=== PATIENT | female | born 2000 | race Caucasian/White ===

== ENCOUNTER → 2023-09-14 | Outpatient (CLI) | payer OTHER, SELFPAY ==
[2023-09-18 09:09] LABS: Chlamydia By Nucleic Acid AMP Negative (Negative); Gonococcus By Nucleic Acid AMP Negative (Negative)
== END | disposition home or self-care (01) ==
LOC: LABSPEC 16:51
PROVIDERS: PCP Internal Medicine; Referring Provider Advanced Practice Midwife; Visit Provider Advanced Practice Midwife
DX: Z34.90 Encounter for supervision of normal pregnancy, unspecified, unspecified trimester (principal)
CPT/HCPCS: 87086; 87088; 87491; 87591

== ENCOUNTER → 2023-10-10 | Outpatient (CLI) | payer OTHER, SELFPAY ==
[2023-10-10 16:02] LABS: Absolute Lymphocyte Count 2.25 X10^3/uL (0.83-4.51); Absolute Neutrophil Count 10.3 X10^3/uL (2.0-7.7); Basophil# 0.04 X10^3/uL; Basophil% 0.3 % (0-1); Eosinophil# 0.28 X10^3/uL; Eosinophils% 2.1 % (0-5); Hematocrit 39.3 % (37-47); Hemoglobin 13.4 g/dL (12.0-15.0); Lymphocyte # 2.25 X10^3/ul (0.83-4.51); Lymphocyte % 16.6 % (19-41); Mean Corp Hgb Conc 34.1 g/dL (32-36); Mean Corpuscular Hgb 29.9 pg (27.0-32.0); Mean Corpuscular Volume 87.7 fL (81-99); Mean Platelet Vol. 9.3 fl (6.2-12.0); Monocyte# 0.64 X10^3/uL; Monocyte% 4.7 % (0-10); NRBC Flagged by Analyzer 0 % (0-5); Neutrophil # 10.27 X10^3/uL (2.7-7.7); Neutrophil % 75.8 % (47-70); Platelet Count 295 K/mm3 (150-450); Red Blood Count 4.48 M/mm3 (4.2-5.4); White Blood Count 13.6 K/mm3 (4.4-11.0)
[2023-10-10 16:55] LABS: NATERA MAILED SPECIMEN
[2023-10-10 17:07] LABS: HIV - WCH Non-Reactive (Nonreactive); Hepatitis B Surface Antigen Non-Reactive (Nonreactive); Hepatitis C Antibody Non-Reactive (Nonreactive); Rubella IgG Reactive (Nonreactive); Syphilis Antibodies Non-reactive
== END | disposition home or self-care (01) ==
LOC: PAVLAB 15:39
PROVIDERS: PCP Internal Medicine; Referring Provider Advanced Practice Midwife; Visit Provider Advanced Practice Midwife
DX: Z34.00 Encounter for supervision of normal first pregnancy, unspecified trimester (principal)
CPT/HCPCS: 36415; 85025; 86703; 86762; 86780; 86803; 86850; 86900; 86901; 87340

== ENCOUNTER → 2023-10-16 | Outpatient (CLI) | payer OTHER, SELFPAY ==
[2023-10-16 17:30] LABS: NATERA MAILED SPECIMEN
== END | disposition home or self-care (01) ==
LOC: LAB 16:28
PROVIDERS: PCP Internal Medicine; Visit Provider Advanced Practice Midwife
DX: Z34.82 Encounter for supervision of other normal pregnancy, second trimester (principal)

== ENCOUNTER → 2023-11-07 | Outpatient (CLI) | payer OTHER, SELFPAY | END | disposition home or self-care (01) | LOC: LABSPEC 16:50 | PROVIDERS: PCP Internal Medicine; Visit Provider Obstetrics & Gynecology | DX: O23.40 Unspecified infection of urinary tract in pregnancy, unspecified trimester (principal); Z3A.00 Weeks of gestation of pregnancy not specified | CPT/HCPCS: 87086; 87088 ==

== ENCOUNTER → 2024-01-23 | Outpatient (CLI) | payer OTHER, SELFPAY ==
[2024-01-23 09:51] LABS: Absolute Lymphocyte Count 1.75 X10^3/uL (0.83-4.51); Basophil# 0.03 X10^3/uL; Basophil% 0.3 % (0-1); Eosinophil# 0.28 X10^3/uL; Eosinophils% 2.9 % (0-5); Hematocrit 35.5 % (37-47); Hemoglobin 11.9 g/dL (12.0-15.0); Lymphocyte # 1.75 X10^3/ul (0.83-4.51); Lymphocyte % 18.1 % (19-41); Mean Corp Hgb Conc 33.5 g/dL (32-36); Mean Corpuscular Hgb 29.7 pg (27.0-32.0); Mean Corpuscular Volume 88.5 fL (81-99); Mean Platelet Vol. 9.3 fl (6.2-12.0); Monocyte# 0.54 X10^3/uL; Monocyte% 5.6 % (0-10); NRBC Flagged by Analyzer 0 % (0-5); Neutrophil # 7.02 X10^3/uL (2.7-7.7); Neutrophil % 72.5 % (47-70); Platelet Count 262 K/mm3 (150-450); RBC Distribution Width CV 12.2 % (11.6-14.6); RBC Distribution Width SD 39.6 fl (35.1-43.9); Red Blood Count 4.01 M/mm3 (4.2-5.4); White Blood Count 9.7 K/mm3 (4.4-11.0)
[2024-01-23 10:09] LABS: Glucose Challenge Gest 1H 50g 108 mg/dL (70-140)
[2024-01-23 11:17] LABS: HIV - WCH Non-Reactive (Nonreactive); Syphilis Antibodies Non-reactive
--- OUTSIDE RECORDS SUMMARY | 2024-01-23 12:15 | XMS RPT_ITS | CCD ---
Author Name Unknown Address [address] [place] [address] Organization [facility] Care Team Providers Care Heat Treat Technician Name Role Phone Karla Colon Unavailable Unavailable Karla Colon Unavailable Unavailable No Doctor Assigned, Nodr Unavailable Unavail able NO, PHYSICIAN Primary Care Unavailable YAIMA GILLIS Attending Unava ilable None, No PCP Unavailable Unavailable Unavailable Unavailable Required, No Pcp Unavailable Unavailable Geraldo Lo Unavailable Unavailable Nelly Benavidez Unavailable Unavailable Florinda Herrera Unavailable Dr. NELLY BENAVIDEZ Referring Unav ailable BENAVIDEZ, Dr. NELLY AGUERO Attending Unav ailable Oberhauser DO, Anders L Primary Care Provider Ms. Florinda Herrera Attending Unava ilable Teresita, Ms. Geraldo Santacruz Attending Unavai lable OBERHAUSER, ANDERS L Primary Care Unavailable OBERHAUSER, ANDERS L Primary Care Unavailable PETIT, MOSES F Attending Unavailable AVA GILLISY S Referring Unavailable OBERHAUSER, ANDERS L Primary Care Unavailable MOLLY GILLIS S Referring Unavailable OBERHAUSER, ANDERS L Primary Care Unavailable PETITOMNIMOSES F Attending Unavailable Unavailable Unavailable Unavailable Allergies Allergy Classification Reported Allergen(s) Allergy Type Date of Onset Reaction(s) Facility Peanuts and Peanut Containing Products (1 source) peanut Food Allergy 03-30-2021 [facility] Work Phone: (3 sources) peanut allergenic extract; Translations: [PEANUT] Drug Allergy 12-02-2019 [facility] (2 sources) peanut Allergy to substance (finding) [facility] [address] Work Phone: Medications Current Medications Medication Drug Class(es) Dates Sig (Normalized) Sig (Original) amoxicillin 875 mg oral tablet (1 source) Penicillin-class Antibacterial Start: 12-05-2022 End: 12-14-2022 take 1 tablet by mouth twice daily amoxicillin 875 mg oral tablet ; 1 tab(s) orally 2 times a day Quantity: 20 Refills: 0 Ordered: 05-Dec-2022 Florinda Herrera Start: 05-Dec-2022 End: 14-Dec-2022 Generic Substitution Allowed Comments: Finish all this medication unless otherwise directed by prescriber. Completed/Discontinued Medications Medication Drug Class(es) Dates Sig (Normalized) Sig (Original) [id number] 200 actuat albuterol 0.09 mg/actuat metered dose inhaler (1 source) beta2-Adrenergic Agonist Start: 10-17-2022 take 2 puff(s) by inhalation twice daily as needed for cough albuterol 90 mcg/inh inhalation aerosol ; 2 puff(s) inhaled 2 times a day as needed for cough Quantity: 8.5 Refills: 0 Ordered: 17-Oct-2022 Geraldo Lo Start: 17-Oct-2022 Generic Substitution Allowed Comments: For inhalation only.It is very important that you take or use this exactly as directed. Do not skip doses or discontinue unless directed by your doctor.Obtain medical advice before taking any non-prescription drugs as some may affect the action of this medication.Shake well before use. Problems Active Problems Problem Classification Problem Date Documented Date Episodic/Chronic Acute and chronic tonsillitis (1 source) Acute and chronic tonsillitis 12-05-2022 Allergic reactions (4 sources) Allergy to peanuts; Translations: [Allergy to peanuts] Onset: 07-06-2023 07-06-2023 Episodic Conditions associated with dizziness or vertigo (2 sources) Dizziness; Translations: [Dizziness and giddiness] Episodic Contraceptive and procreative management (3 sources) Patient encounter status; Translations: [Encounter for contraceptive management, unspecified] Onset: 07-06-2023 07-06-2023 Episodic Headache; including migraine (1 source) Headache; including migraine; Translations: [Headache, unspecified] Onset: 10-17-2022 Menstrual disorders (1 source) Dysmenorrhea; Translations: [Dysmenorrhea] Chronic Nutritional deficiencies (6 sources) Cobalamin deficiency; Translations: [Deficiency of other specified B group vitamins] Onset: 07-06-2023 07-06-2023 Episodic Other nervous system disorders (2 sources) Paresthesia; Translations: [Anesthesia of skin] Episodic Other screening for suspected conditions (not mental disorders or infectious disease) (2 sources) Encounter for screening for lipoid disorders; Translations: [Encounter for screening for lipoid disorders] Onset: 07-06-2023 Episodic Other upper respiratory disease (2 sources) Pain in throat 12-05-2022 Episodic Past or Other Problems Problem Classification Problem Date Documented Date Episodic/Chronic Acute and chronic tonsillitis (2 sources) Tonsillitis; Translations: [Acute tonsillitis] Onset: 12-05-2022 12-05-2022 Episodic Fever of unknown origin (3 sources) Fever; Translations: [Fever, unspecified] Onset: 12-05-2022 Episodic Malaise and fatigue (7 sources) Fatigue; Translations: [Malaise] Onset: 12-05-2022 Episodic Other upper respiratory infections (3 sources) Sinusitis; Translations: [Acute pharyngitis, unspecified] Onset: 10-17-2022 Episodic Unclassified (1 source) Patient encounter status; Translations: [Encounter for contraceptive management] Unclassified (1 source) Travel abroad; Translations: [Engages in travel abroad] Unclassified (1 source) Finding of menstrual bleeding; Translations: [Menstruation] Results Test Name Value Interpretation Reference Range Facil ity Vital Signs Date Time Vital Sign Value Performing Clinician Facility 07-06-2023 13:40-0400 Body height 157.5 cm Anders TacatìpriyaShopcadepriya DO Work Phone: [facility] 07-06-2023 13:40-0400 Body mass index (BMI) [Ratio] 26.7 kg/m2 Anders TacatìpriyaShopcadepriya DO Work Phone: [facility] 07-06-2023 13:40-0400 Body weight 66.22 kg Anders TacatìpriyaShopcadepriya DO Work Phone: [facility] 07-06-2023 13:40-0400 Diastolic blood pressure 73 mm[Hg] Anders Oberhauser DO Work Phone: [facility] 07-06-2023 13:40-0400 Heart rate 72 /min Anders Oberhauser DO Work Phone: [facility] 07-06-2023 13:40-0400 Systolic blood pressure 119 mm[Hg] Anders Oberhauser DO Work Phone: [facility] 12-05-2022 12:31-0500 Body height 157 cm No Pcp Required [facility] 12-05-2022 12:31-0500 Body temperature 98.42 [degF] No Pcp Required [facility] 12-05-2022 12:31-0500 Diastolic blood pressure 86 mm[Hg] No Pcp Required [facility] 12-05-2022 12:31-0500 Heart rate 101 /min No Pcp Required [facility] 12-05-2022 12:31-0500 Respiratory rate 16 /min No Pcp Required [facility] 12-05-2022 12:31-0500 SaO2% (BldA) [Mass fraction] 97 % No Pcp Required [facility] 12-05-2022 12:31-0500 Systolic blood pressure 122 mm[Hg] No Pcp Required [facility] 10-17-2022 17:55-0500 Body height 157 cm No Pcp Required [facility] 10-17-2022 17:55-0500 Body temperature 98.06 [degF] No Pcp Required [facility] 10-17-2022 17:55-0500 Diastolic blood pressure 76 mm[Hg] No Pcp Required [facility] 10-17-2022 17:55-0500 Heart rate 62 /min No Pcp Required [facility] 10-17-2022 17:55-0500 Respiratory rate 16 /min No Pcp Required [facility] 10-17-2022 17:55-0500 SaO2% (BldA) [Mass fraction] 96 % No Pcp Required [facility] 10-17-2022 17:55-0500 Systolic blood pressure 118 mm[Hg] No Pcp Required [facility] 05-08-2022 14:52-0400 Body height 157.48 cm No PCP None [facility] [address] Work Phone: 05-08-2022 14:52-0400 Body mass index (BMI) [Ratio] 26.69 kg/m2 No PCP None [facility] [address] Work Phone: 05-08-2022 14:52-0400 Body surface area Derived from formula 1.67 m2 No PCP None [facility] [address] Work Phone: 05-08-2022 14:52-0400 Body weight 66.2 kg No PCP None [facility] [address] Work Phone: 05-08-2022 14:52-0400 Diastolic blood pressure 62 mm[Hg] No PCP None [facility] Work Phone: 05-08-2022 14:52-0400 Systolic blood pressure 120 mm[Hg] No PCP None [facility] [address] Work Phone: Encounters Encounter Date Encounter Type Care Provider Facility Start: 12-20-2023 End: 12-20-2023 ambulatory MOSES PETIT [facility] Start: 11-20-2023 End: 11-20-2023 ambulatory S [facility] Start: 07-09-2023 End: 07-10-20[facility] Start: 07-09-2023 End: 07-10-2023 Encounter for general adult medical examination without abnormal findings ANDERS Patel [facility] Start: 07-06-2023 End: 07-06-2023 Office outpatient new 30 minutes Anders Pineda DO Work Phone: [facility] Procedures Date Procedure Procedure Detail Performing Clinician Start: 07-09-2023 CBC W Auto Different ial panel - Blood ANDERS PINEDA Start: 07-09-2023 Comprehensive metabo lic 2000 panel - Serum or Plasma ANDERS PINEDA Start: 07-09-2023 Cyanocobalamin vitamin b-12 ANDERS PINEDA Start: 07-09-2023 Lipid panel ANDERS KERNSUSER No history of surgery No PCP None Plan of Treatment Date Care Activity Detail Author Start: 2049 Zoster Vaccines (1 of 2) Zoster Vaccines (1 of 2) [facility] Start: 07-27-2023 Influenza vaccination Influenza Vaccine (#1) [facility] Start: 07-06-2023 End: 07-06-2024 CBC W Auto Differential panel - Blood CBC and Auto Differential Lab Routine Wellness examination Expected: 07/06/2023 (Approximate), Expires: 07/06/2024 [facility] Work Phone: Immunizations Immunization Date Immunization Notes Care Provider Fa cility 07-11-2016 meningococcal polysaccharide (groups A, C, Y and W-135) diphtheria toxoid conjugate vaccine (MCV4P) [facility] Work Phone: 07-11-2016 meningococcal vaccin e of unknown formulation and unknown serogroups [facility] Work Phone: Payers Date Payer Category Payer Unknown [id number] 2021 Unknown [id number] 2018 Unknown 1999 Unknown [id number] 2.16.84 [id number] 1999 Unknown [id number] 2.16. [id number] 1999 Unknown [id number] 2.16. [id number] 1999 Unknown [id number] 2.16.8 [id number] 1999 Unknown [id number] 2.16.8 [id number] 1999 Unknown [id number] 2.16.84 [id number] 1999 Unknown [id number] 2.16.84 [id number] 1999 Unknown [id number] 2.16. [id number] 1999 Unknown [id number] 2.16. [id number] Self-pay Self Pay [id number] Unknown Self Pay [id number] [facility] [id number] Unknown Self Pay [id number] [facility] [id number] Unknown [id number] Social History Date Type Detail Facility Tobacco smoking status RIIS Unknown if ever smoked [facility] Work Phone: Start: 2000 Sex Assigned At Female [facility] Work Phone: Start: 12-02-2019 End: 07-06-2023 Tobacco smoking status NHIS Never smoker (Never Smoked) [facility] Work Phone: Start: 12-02-2019 [facility] Work Phone: Start: 12-02-2019 Never Smoked [facility] Work Phone: Start: 07-11-2019 No [facility] Work Phone: Start: 12-02-2019 does not use [facility] Work Phone: Start: 07-06-2023 Sexually active Sexually active [address] Work Phone: Tobacco smoking consumption unknown [facility] Start: 07-06-2023 Tobacco use and exposure Smokeless tobacco non-user [facility] Work Phone: Start: 07-06-2023 Alcohol intake Current drinke r of alcohol (finding) [facility] Work Phone: Start: 07-06-2023 Tobacco use panel [facility] Work Phone: Start: 2000 Sex Assigned At Not on file [facility] Work Phone: Start: 06-26-2023 End: 07-06-2023 Exposure to SARS-CoV-2 (event) Not sure [facility] Goals Date Patient Goal Desired Activity /State History of Present illness Narrative 07-06-2023 Anders Pineda, DO - 07/06/2023 1:40 PM EDT Note Date & Type Note Facility 07-06-2023 History of Present illness Narrative Subjective Patient ID: Fazal Jenkins is a 23 y.o. female who presents for Establish Care (NPV), Lab Orders (Requesting), and Fatigue. Fatigue Associated symptoms include fatigue. Pertinent negatives include no chest pain, chills, congestion, coughing, nausea, numbness, sore throat, vomiting or weakness. Patient is a 23 y.o. female patient who is here today to establish care. Patient has a pmhx of b12 deficiency, due for labs, peanut allergy. Review of Systems Constitutional: Positive for fatigue. Negative for activity change, appetite change and chills. HENT: Negative for congestion, postnasal drip, sinus pressure, sinus pain and sore throat. Respiratory: Negative for cough, shortness of breath and wheezing. Cardiovascular: Negative for chest pain and leg swelling. Gastrointestinal: Negative for abdominal distention, diarrhea, nausea and vomiting. Musculoskeletal: Negative for back pain. Neurological: Negative for weakness and numbness. Objective BP 119/73 (BP Location: Right arm, Patient Position: Sitting, BP Cuff Size: Adult) Pulse 72 Ht 1.575 m (5' 2 ) Wt 66.2 kg (146 lb) BMI 26.70 kg/m Physical Exam Constitutional: General: She is not in acute distress. Appearance: Normal appearance. She is not toxic-appearing. HENT: Head: Normocephalic and atraumatic. Nose: Nose normal. Mouth/Throat: Mouth: Mucous membranes are moist. Pharynx: Oropharynx is clear. Eyes: Extraocular Movements: Extraocular movements intact. Conjunctiva/sclera: Conjunctivae normal. Pupils: Pupils are equal, round, and reactive to light. Cardiovascular: Rate and Rhythm: Normal rate and regular rhythm. Heart sounds: No murmur heard. No friction rub. No gallop. Pulmonary: Effort: Pulmonary effort is normal. Breath sounds: Normal breath sounds. Abdominal: General: Bowel sounds are normal. There is no distension. Palpations: Abdomen is soft. There is no mass. Tenderness: There is no abdominal tenderness. There is no guarding. Musculoskeletal: General: No swelling. Normal range of motion. Cervical back: Normal range of motion. Skin: General: Skin is warm and dry. Neurological: General: No focal deficit present. Mental Status: She is alert and oriented to person, place, and time. Psychiatric: Mood and Affect: Mood normal. Thought Content: Thought content normal. Judgment: Judgment normal. Pap smear 04/15 Flu shots declines COVID received Assessment/Plan Problem List Items Addressed This Visit Screening for lipid disorders - Primary B12 deficiency Peanut allergy Will order cbc, cmp lipid panel 2. B12 deficiency - will check b12 Final diagnoses: [Z00.00] Wellness examination [Z13.220] Screening for lipid disorders [E53.8] B12 deficiency [Z91.010] Peanut allergy documented in this encounter [facility] Work Phone: History of Present illness Narrative 05-09-2021 Note Date & Type Note Facility 05-09-2021 History of Present illness Narrative Patient is a 21-year-old who comes in to establish and transfer care. Patient reports that she had a Pap smear last year in [place] and it was normal. Patient currently on low Loestrin FE for a history of dysmenorrhea and contraception. She reports that she has done very well on this form of contraception. Patient was wondering if there are other forms of contraception that may be more beneficial and less likely to affect her fertility. Patient is in a monogamous relationship. Has been patient has no health problems [address] Work Phone: Evaluation note Note Date & Type Note Facility Evaluation note No assessment information availa [facility] Work Phone: Evaluation note Note Date & Type Note Facility documented in this encounter [facility] Work Phone: Summary Purpose Family History No Family History Records Found Relationship Condition Age at Onset Recorded Date/T patrica Not Specified Benign hypertension Unknown Cardiac disease Unknown Hyperlipidemia Unknown Relationship Condition Age at Onset Recorded Date/T patrica PaternalGrandparent Benign hypertension Unknown Cardiac disease Unknown Hyperlipidemia Unknown Unknown Family Member Name Dates Details Family history of malignant neoplasm of skin: Aunt(V16.8, Z80.8) Status:Active Family history of thyroid di sease: Aunt(V18.19, Z83.49) Status:Active Irregular heartbeat: Brother Status:Active Advance Directives No Advanced Directives Records Found Advance Directive Response Recorded Date/ Time Code Status Full Code July 11 9 1:40pm advanced care plan No December 02, 2019 12:34pm Assessments No Assessments Information Available Chief Complaint * NEW Patient is here for yearly exam. Patient does self breast exams regularly. LMP 04/23/22 * PT WOULD LIKE TO BE ESTABLISHED TODAY. PT IS CURRENTLY ON CONTROL, STATES SHE WANTS KIDS IN ACOUPLE YEARS. PT WOULD LIKE TO MAYBE DISCUSS DIFFERENT KINDS OF CONTROL OPTIONS TO SEE WHICH WOULD BE MORE SAFE. Additional Source Comments INFORMATION SOURCE (unrecogn ized section and content) DATE CREATED AUTHOR AUTHOR'S ORGANIZ ATION 01/05/2022 [facility] DATE CREATED AUTHOR AUTHOR'S ORGANIZ ATION 04/20/2022 [facility] DATE CREATED AUTHOR AUTHOR'S ORGANIZ ATION 05/09/2022 [employer] DATE CREATED AUTHOR AUTHOR'S ORGANIZ ATION 12/05/2022 [facility] DATE CREATED AUTHOR AUTHOR'S ORGANIZ ATION 07/09/2023 [facility] DATE CREATED AUTHOR AUTHOR'S ORGANIZ ATION 07/14/2023 [facility] DATE CREATED AUTHOR AUTHOR'S ORGANIZ ATION 12/21/2023 [facility] Goals (unrecognized section and content) Goals may be documented in a n alternate section <item><item> Privacy Markings (unrecogniz ed section and content) Section Author: Farzana Sebastian PROHIBITION ON REDISCLOSURE OF CONFIDENTIAL INFORMATION This notice accompanies a disclosure of information concerning a client made to you with the consent of such client. Section Author: Farzana Sebastian PROHIBITION ON REDISCLOSURE OF CONFIDENTIAL INFORMATION This notice accompanies a disclosure of information concerning a client made to you with the consent of such client. Reason for Visit (unrecogniz ed section and content) Care Teams (unrecognized sec tion and content) FOR RECORDS PERTAINING TO PATIENTS WHO ARE OR HAVE BEEN ENROLLED IN A CHEMICAL DEPENDENCY/SUBSTANCEABUSE PROGRAM, SOME INFORMATION MAY BE OMITTED. This clinical summary was aggregated from multiple sources. Caution should be exercised in using it in the provision of clinical care. This summary normalizes information from multiple sources, and as a consequence, information in this document may materially change the coding, format and clinical context of patient data. In addition, data may be omitted in some cases. CLINICAL DECISIONS SHOULD BE BASED ON THE PRIMARY CLINICAL RECORDS. [employer] provides no warranty or guarantee of the accuracy or completeness of information in this document.
== END | disposition home or self-care (01) ==
LOC: PAVLAB 09:28
PROVIDERS: PCP Internal Medicine; Referring Provider Obstetrics & Gynecology; Visit Provider Obstetrics & Gynecology
DX: Z34.00 Encounter for supervision of normal first pregnancy, unspecified trimester (principal)
CPT/HCPCS: 36415; 82950; 85025; 86703; 86780

== ENCOUNTER → 2024-03-19 | Outpatient (CLI) | payer OTHER, SELFPAY ==
[2024-03-19 16:46] LABS: Absolute Lymphocyte Count 2.04 X10^3/uL (0.83-4.51); Absolute Neutrophil Count 8.7 X10^3/uL (2.0-7.7); Basophil# 0.04 X10^3/uL; Basophil% 0.3 % (0-1); Eosinophil# 0.41 X10^3/uL; Eosinophils% 3.3 % (0-5); Hematocrit 35.2 % (37-47); Hemoglobin 11.7 g/dL (12.0-15.0); Lymphocyte # 2.04 X10^3/ul (0.83-4.51); Lymphocyte % 16.7 % (19-41); Mean Corp Hgb Conc 33.2 g/dL (32-36); Mean Corpuscular Hgb 28.5 pg (27.0-32.0); Mean Corpuscular Volume 85.6 fL (81-99); Mean Platelet Vol. 9.7 fl (6.2-12.0); Monocyte# 0.92 X10^3/uL; Monocyte% 7.5 % (0-10); NRBC Flagged by Analyzer 0 % (0-5); Neutrophil # 8.67 X10^3/uL (2.7-7.7); Neutrophil % 70.8 % (47-70); Platelet Count 306 K/mm3 (150-450); RBC Distribution Width CV 11.8 % (11.6-14.6); RBC Distribution Width SD 36.8 fl (35.1-43.9); Red Blood Count 4.11 M/mm3 (4.2-5.4); White Blood Count 12.3 K/mm3 (4.4-11.0)
[2024-03-19 17:11] LABS: Glucose Challenge Gest 1H 50g 131 mg/dL (70-140)
== END | disposition home or self-care (01) ==
LOC: LAB 15:48
PROVIDERS: Nurse Practitioner Women's Health; PCP Internal Medicine; Referring Provider Advanced Practice Midwife; Visit Provider Advanced Practice Midwife
DX: O36.60X0 Maternal care for excessive fetal growth, unspecified trimester, not applicable or unspecified (principal); Z3A.00 Weeks of gestation of pregnancy not specified
CPT/HCPCS: 36415; 82950; 85025

== ENCOUNTER → 2024-03-26 | Outpatient (CLI) | payer OTHER, SELFPAY | END | disposition home or self-care (01) | PROVIDERS: PCP Internal Medicine; Visit Provider Obstetrics & Gynecology | DX: Z34.00 Encounter for supervision of normal first pregnancy, unspecified trimester (principal) | CPT/HCPCS: 87081 ==

== ENCOUNTER 2024-04-11 10:16 | Inpatient (IN) | payer OTHER, SELFPAY ==
[2024-04-11] VITALS (16 sets, daily range): BP systolic 89–135; BP diastolic 68–99; PULSE 63–104; RESP 15–19; TEMP 36.1–37.1; O2SAT 98–100; BMI 31.1
[2024-04-11] MEDS: Lactated Ringers 1,000 ML 999 ML IV (10:40)
[2024-04-11 11:13] LABS: Absolute Lymphocyte Count 2.13 X10^3/uL (0.83-4.51); Absolute Neutrophil Count 8.7 X10^3/uL (2.0-7.7); Basophil# 0.04 X10^3/uL; Basophil% 0.3 % (0-1); Eosinophil# 0.28 X10^3/uL; Eosinophils% 2.3 % (0-5); Hemoglobin 12.8 g/dL (12.0-15.0); Lymphocyte # 2.13 X10^3/ul (0.83-4.51); Lymphocyte % 17.6 % (19-41); Mean Corp Hgb Conc 32.8 g/dL (32-36); Mean Corpuscular Hgb 27.6 pg (27.0-32.0); Mean Corpuscular Volume 84.2 fL (81-99); Mean Platelet Vol. 10.4 fl (6.2-12.0); Monocyte# 0.83 X10^3/uL; Monocyte% 6.9 % (0-10); NRBC Flagged by Analyzer 0 % (0-5); Neutrophil # 8.73 X10^3/uL (2.7-7.7); Neutrophil % 72.2 % (47-70); Platelet Count 309 K/mm3 (150-450); RBC Distribution Width CV 12.1 % (11.6-14.6); RBC Distribution Width SD 36.5 fl (35.1-43.9); Red Blood Count 4.63 M/mm3 (4.2-5.4); White Blood Count 12.1 K/mm3 (4.4-11.0)
[2024-04-11] MEDS: Acetaminophen 500 MG Tablet 1000 MG PO ×3 (11:38→23:36)
[2024-04-11] MEDS: Sodium Citrate/Citric Acid 30 ML UDC PO (11:39)
[2024-04-11] MEDS: Lactated Ringers 1,000 ML 150 ML IV (11:41)
[2024-04-11 12:08] LABS: Syphilis Antibodies Non-reactive
--- NOTE | 2024-04-11 12:11 | HP.PCM.OB_ITS ---
HPI - General General Date of Admission: 04/11/24 HPI Narrative FAZAL HANSEN, is a 23 y/o @ 39 weeks who presents to L&D for primary section due to suspected macrosomia based on ultrasound. The patient was given options for trial of labor vs primary section and elected to proceed with the section. She was also given options to wait until 40 weeks but declined to do so in fear of going into labor. After discussing the patient's diagnosis and treatment plan options, patient wishes to proceed with surgical management. I have discussed with the patient the risks, benefits, and alternatives of the procedure which include but are not limited to risks of anesthesia, bleeding, infection, possible damage to bowel, bladder, or surrounding vasculature which could lead to additional surgery to evaluate any complications. Patient agrees to procedure and wishes to proceed. ACOG/uptodate references given for additional information regarding procedure. Maternal Data Information AGNES Calculator Estimated Delivery Date Method Current WG Current Estimate 04/18/24 LMP (Certain) 39w 0d PFSH PFSH Medical History (Updated 04/11/24 @ 10:54 by Marti Smith) Placental abnormality macrosomia Home Medications ?Medication ?Instructions ?Recorded ?Last Taken ?Type vit,calcium no.40-iron tab PO pegnancy 09/14/23 Unknown History fum 27 mg iron-folate no.1 1 mg tablet (PNV-Select) metoclopramide HCl 5 mg tablet 5 mg PO Q6H PRN nausea and 11/07/23 Unknown Rx (Reglan) vomiting #30 tabs ondansetron HCl 4 mg tablet 4 mg PO Q6H nausea #30 tabs 01/04/24 04/11/24 Rx Allergy/AdvReac Type Severity Reaction Status Date / Time peanut Allergy Severe Hives Verified 04/11/24 11:04 Family History Father Hypertension Aunt Thyroid cancer Aunt Melanoma Surgical History (Updated 04/11/24 @ 10:54 by Marti Smith) History of surgery Social History adopted: No household members: spouse housing: house current occupational status: employed current occupation: Teacher current occupational exposures/hazards: No pets and animals: Yes history of recent travel: Yes ([place] in May) out of state: Yes out of country: Yes sexually active: Yes Smoking Status: Never smoker alcohol intake: current details: socially - not while substance use type: does not use caffeine: Yes amelia/methodist: Anabaptist seatbelt use: always do you feel safe at home: Yes 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 History 1 Elective abortions Hx Para 0 Spontaneous abortions Hx # Term Pregnancies Ectopic pregnancies Hx # Pregnancies Multiple births # of living children Visit Details Expected Delivery Route/Plan Labor Preferences- CB/BF classes: scheduled labor support person: Yonny labor intervention preferences: [] pain management options preferred: epidural if requested cut cord/dad catch: yes : maybe PP control planned: discussed discussed possible routes of delivery and associated risks: [] special requests: [] Plans Covid status: [] Flu vaccine: given Tdap vaccine: [] Rhogam: NA LARC form signed: yes Problem list reviewed and updated with the most current plan of care details and appropriate orders placed. Relevant counseling for the gestational age provided. Continue routine care and follow up unless otherwise noted in visit notes/problem list details OB Flowsheet Initial Weight: Not Recorded Date -?-?-?-?-?-?-?-?-?-?-?-?- EGA Weight BP Urine Prot -?-?-?-?-?-?-?-?-?-?-?-?- Glucose FHR FuHt Pres Dilation -?-?-?-?-?-?-?-?-?-?-?-?- Effaced St Visit Note 09/14/23 -?-?-?-?-?-?-?-?-?-?-?-?- 9w 0d 146 lb 4 oz 117/80 -?-?-?-?-?-?-?-?-?-?-?-?- 171 -?-?-?-?-?-?-?-?-?-?-?-?- kw-CRL cons with dates. flu shot today. NIPT and Carrier 10/10/23 -?-?-?-?-?-?-?-?-?-?-?-?- 12w 5d 148 lb 4 oz 120/82 Nega tive -?-?-?-?-?-?-?-?-?-?-?-?- Negative 160 -?-?-?-?-?-?-?-?-?-?-?-?- MH-No VB. Nausea improving. Br US to confirm live IUP. PN labs today 11/07/23 -?-?-?-?-?-?-?-?-?-?-?-?- 16w 5d 151 lb 6 oz 126/82 Nega tive -?-?-?-?-?-?-?-?-?-?-?-?- Negative 153 -?-?-?-?-?-?-?-?-?-?-?-?- JV- no cramping or spotting. still having some nausea. will try reglan. JV- no cramping or spotting. still having some nausea. will try reglan. pt has back pain and thinks could have a UTI. she went to urgent care and they gave her an antibiotic but she did not take it and can not remember the name of it. 12/07/23 -?-?-?-?-?-?-?-?-?-?-?-?- 21w 0d 152 lb 125/84 Negative -?-?-?-?-?-?-?-?-?-?-?-?- Negative 150 -?-?-?-?-?-?-?-?-?-?-?-?- SM- no vb lof cr amping discussed circumvallate placenta 01/04/24 -?-?-?-?-?-?-?-?-?-?-?--?- 25w 0d 158 lb 8 oz 129/81 Nega tive -?-?-?-?-?-?-?-?-?-?-?-?- Negative 160 -?-?-?-?-?-?-?-?-?-?-?-?- JV- no lof, vag bleeding, or dec fm. last growth was 54th%. rpt monthly 01/23/24 -?-?-?-?-?-?-?-?-?-?-?-?- 27w 5d 155 lb 4 oz 118/72 Nega tive -?-?-?-?-?-?-?-?-?-?-?-?- Negative 141 27 -?-?-?-?-?-?-?-?-?-?-?-?- MH-No VB, LOF. G ood FM. recent growth US WNL and has 32 and 36 US sched w/MFM. Normal 28 wk labs. Larc 02/07/24 -?-?-?-?-?-?-?-?-?-?-?-?- 29w 6d 160 lb 117/82 Negative -?-?-?-?-?-?-?-?-?-?-?-?- Negative 130 30 -?-?-?-?-?-?-?-?-?-?-?-?- KW- no vb/lof/ct x. good fm. tdap today. 02/21/24 -?-?-?-?-?-?-?-?-?-?-?-?- 31w 6d 162 lb 6 oz 110/74 Nega tive -?-?-?-?-?-?-?-?-?-?-?-?- Negative 130 32 -?-?-?-?-?-?-?-?-?-?-?-?- SM- no vb lof go od fm no regular ctx 03/03/24 -?-?-?-?-?-?-?-?-?-?-?-?- 33w 3d 163 lb 4 oz 122/84 Nega tive -?-?-?-?-?-?-?-?-?-?-?-?- Negative 145 35 -?-?-?-?-?-?-?-?-?-?-?-?- JV- normal growt h on last scan, 70th%. no complaints other than vague headache without pre-e symptoms. tylenol + benadryl recommended. 03/18/24 -?-?-?-?-?-?-?-?-?-?-?-?- 35w 4d 167 lb 8 oz 122/82 Nega tive -?-?-?-?-?-?-?-?-?-?-?-?- Negative 135 38 -?-?-?-?-?-?-?-?-?-?-?-?- KW- no vb/lof/ct x. good fm. discussed US. needs 1 hour gct again. 03/26/24 -?-?-?-?-?-?-?-?-?-?-?-?- 36w 5d 169 lb 6 oz 128/83 Nega tive -?-?-?-?-?-?-?-?-?-?-?-?- Negative 130 39 Cephalic 0 -?-?-?-?-?-?-?-?-?-?-?-?- JV- baby efw cur rently is 8lbs 5 oz. by 40 weeks will be 10 lbs 4 oz. pt would like to elect for a primary section at 39 to 40 weeks to prevent from going into labor and risking shoulder dystocia. has circumvellate placenta. 04/02/24 -?-?-?-?-?-?-?-?-?-?-?-?- 37w 5d 172 lb 127/86 Negative -?-?-?-?-?-?-?-?-?-?-?-?- Negative 134 41 Cephalic -?-?-?-?-?-?-?-?-?-?-?-?- JV- current EFW is 9lbs today. plan is if goes into labor between this week and next appt can decide if wants a section. if still after next week then plan is for section to prevent shoulder dystocia.scheduled 04/11 ROS Constitutional Constitutional: Denies change in weight, fatigue, fever(s), headache(s), poor appetite or weakness Eyes Eyes: Denies blurry vision, change in vision, seeing flashes or spots in vision ENT HEENT: Denies dizziness, headache(s), loss taste/smell or sore throat Cardiovascular Cardiovascular: Denies chest pain, dizziness, dyspnea, irregular heart rhythm, l eg edema, palpitations, rapid heart rate or vomiting Respiratory/Chest Respiratory/Chest: Denies chest tightness, cough, dyspnea or breast pain Gastrointestinal Gastrointestinal: Denies abdominal pain, anorexia, constipation, cramping, diarrhea, hemorrhoids, vomiting or weight changes Genitourinary Genitourinary: Denies dysuria, flank pain, genital lesions, genital pain, urinary frequency or urinary urgency Musculoskeletal Musculoskeletal: Denies back pain, difficulty walking, joint pain, limited range of motion, muscle cramps or numbness Integumentary Integumentary: Denies lesions or unusual bruising Neurologic Neurologic: Denies abnormal movements, abnormal speech, dizziness, numbness, seizure-like activity or syncope Psychiatric Psychiatric: Denies anxiety, behavioral changes, change in appetite, change in libido, cognitive impairment, confusion, depression, difficulty concentrating, hallucinations or suicidal thoughts Endocrine Endocrinology: Denies excessive sweating, polydipsia or polyuria Hematologic/Lymphatic Hematologic/Lymphatic: Denies easy bleeding, easy bruising or lymphadenopathy Allergic/Immunologic Allergic/Immunologic: Denies itchy eyes, lip swelling, seasonal rhinorrhea, rhinitis, throat swelling, tongue swelling, eczemia, wheezing or asthma Vital Signs Vital Signs Vital Signs: 04/11/24 10:52 Temperature 98.8 F Temperature Source Temporal Pulse Rate 80 Respiratory Rate 16 Blood Pressure 121/89 H Blood Pressure Mean 99 Blood Pressure Source Monitor Blood Pressure Position Semi-Fowlers Blood Pressure Location Left Arm Pulse Ox 98 Oxygen Delivery Method Room Air Weight Weight: 170 lb 6.4 oz Body Mass Index (BMI) 31.1 Physical Exam Const alert, oriented x3, no apparent distress and healthy appearing General Appearance: cooperative; Negative for anxious HEENT normocephalic Face and Sinus: normal facial exam Eyes EOMs intact bilaterally and no scleral icterus General Eye: normal appearance of both eyes Neck full ROM and supple Lymph Lymphatic: no lymphadenopathy noted Chest Chest: abnormal inspection of the chest Resp normal respiratory effort Effort and Inspection: able to speak in complete sentences Cardio regular rate GI soft to palpation and non-tender Inspection: gravid Palpation: soft; Negative for tender Back/Spine no CVA tenderness Extremity normal to inspection, full ROM and no clubbing, cyanosis or edema General Extremity: Negative for calf tenderness or edema Skin Lesions: no lesions Rashes: no rashes Psych mental status grossly normal Labs Labs Labs: Blood Type A POSITIVE Antibody Screen NEGATIVE Hct 39.0 % (37-47) Hgb 12.8 g/dL (12.0-15.0) Syphilis Total Ab Non-reactive Rubella IgG Antibody Reactive (Nonreactive) Hep Bs Antigen Non-Reactive (Nonreactive) Hepatitis C Antibody Non-Reactive (Nonreactive) Chlamydia DNA (SHAJI) Negative (Negative) N.gonorrhoeae DNA (SHAJI) Negative (Negative) HIV 1&2 Antibody Non-Reactive (Nonreactive) Glucose 1 Hr 50 gm 131 mg/dL (70-140) Assessment & Plan (1) Large for gestational age fetus affecting management of mother, antepartum: COMMENT: 3717 at 35 weeks EFW at 39 weeks 4617. consider P C/S after GCT testing, Primary section scheduled for 04/11 @ 12 with JV (2) LGA (large for gestational age) fetus: COMMENT: EFW, HC and AC >90%. [facility] [place] recommends rpt GCT (3) Circumvallate placenta: QUALIFIERS: Trimester: second trimester Qualified Code(s): O43.112 - Circumvallate placenta, second trimester COMMENT: Growth US Q4wk: 12/20: 23w-54%, 28w-63% 30w-EFW 70, HC 68% (4) : QUALIFIERS: Weeks of gestation: 37 weeks Qualified Code(s): Z3A.37 - 37 weeks gestation of COMMENT: NIPT low risk, ntd declined. carrier neg. nl anatomy (5) Supervision of normal first : QUALIFIERS: Trimester: second trimester Qualified Code(s): Z34.02 - Encounter for supervision of normal first , second trimester COMMENT: PRR, AGNES 04[birth year] boy name secret Spouse Yonny
--- NOTE | 2024-04-11 12:13 | DCINST_ITS ---
Discharge Instructions Diet Discharge Diet: No restrictions Activity Discharge Activity: May Not Drive (for 2 weeks or while taking narcotic pain medications.), May Shower and May Take a Tub Bath (in 7 days.) May resume sexual activity in: 4-6 weeks Weight Bearing Status: Full weight bearing Lifting Restrictions: 20 pounds Dressing / Incision Call your doctor if your incision/area has: Continuous Slow Oozing, Sudden Increased Bleeding, Increased Pain/ Swelling, Increased Redness and Foul Smelling Discharge Call your doctor if you observe: Fever of 101 or Higher and Using more than 1 pad per hour Suture Line Care: Avoid Pulling/Pushing and Avoid Pinching/Bending Cleanse incision/area with: Soap & Water and Keep Dressing Clean & Dry Follow Up Care Please Follow Up With: Norma Nelson DO When: Call [phone] to make an appointment for an incision check in 1-2 weeks. Test Results: Test results from this visit will be discussed in further detail at your follow- up appointment, if applicable. Discharge Plan Admission Admit Date/Time: 04/11/24 10:16 Primary Reason for Your Visit: section Attending Provider: Norma Nelson Primary Care Provider: Jocelynn Pineda Discharge Orders/Prescriptions Prescriptions: New naproxen 500 mg tablet 500 mg PO BID PRN (Reason: pain) Qty: 30 0RF Continued PNV-Select 27-1 mg tablet PO metoclopramide HCl [Reglan] 5 mg tablet 5 mg PO Q6H PRN (Reason: nausea and vomiting) Qty: 30 4RF ondansetron HCl 4 mg tablet 4 mg PO Q6H Qty: 30 4RF Referrals / Follow Up: Jocelynn Pineda DO [Primary Care Provider] - Disposition Disposition (needs filled in before D/C Order can be placed): Home, Self Care
[2024-04-11] MEDS: Cefazolin 2 GM in 0.9% Normal Saline (100mL Bag) 100 ML IV (12:15)
--- NOTE | 2024-04-11 13:27 | EX.PCM.OBRPT ---
Assessment & Plan (1) Large for gestational age fetus affecting management of mother, antepartum: COMMENT: 3717 at 35 weeks EFW at 39 weeks 4617. consider P C/S after GCT testing, Primary section scheduled for 04/11 @ 12 with JV (2) LGA (large for gestational age) fetus: COMMENT: EFW, HC and AC >90%. [facility] recommends rpt GCT (3) Circumvallate placenta: QUALIFIERS: Trimester: second trimester Qualified Code(s): O43.112 - Circumvallate placenta, second trimester COMMENT: Growth US Q4wk: 12/20: 23w-54%, 28w-63% 30w-EFW 70, HC 68% (4) : QUALIFIERS: Weeks of gestation: 37 weeks Qualified Code(s): Z3A.37 - 37 weeks gestation of COMMENT: NIPT low risk, ntd declined. carrier neg. nl anatomy (5) Supervision of normal first : QUALIFIERS: Trimester: second trimester Qualified Code(s): Z34.02 - Encounter for supervision of normal first , second trimester COMMENT: PRR, AGNES 04/[birth year]/23 boy name secret Spouse Yonny Maternal Data Information AGNSE Calculator Estimated Delivery Date Method Current WG Current Estimate 04/18/24 LMP (Certain) 39w 0d Final AGNES Source: LMP Gestational age: 39 weeks 0 days [place] Doctor Who Attended Delivery: Courtney Ramos Details Operative Information Date of Procedure: 04/11/24 Pre-Operative Diagnosis: suspected macrosomia, 39 weeks gestation Post-Operative Diagnosis: suspected macrosomia, 39 weeks gestation Type of Anesthesia: Spinal Anesthesiologist: John Villa Antibiotic Given: Ancef 2 grams IV x1 Estimated Blood Loss: 800cc Procedure Start Time: 12:38 Procedure Stop Time: 13:05 Time of Delivery: 12:40 Findings Description of Procedure: The patient is a 23 year old G1 @ 39 weeks who presented for primary due to suspected macrosomia. Spinal anesthesia was placed without difficulty. Aggarwal catheter was placed. The patient was placed in the dorsal supine position with leftward tilt. Patient was prepped and draped in the normal sterile fashion. Pfannenstiel skin incision was made with the scalpel and carried through to the underlying layer of fascia with the scalpel. Fascia was nicked in the midline and the incision extended laterally. The rectus bellies were dissected off superiorly and inferiorly with out complication both sharply and bluntly. The peritoneum was entered digitally. The incision was stretched and a low transverse uterine incision was made with the scalpel. The infant's head was delivered atraumatically followed by the anterior and posterior shoulders without complication the rest of the delivered. The cord was clamped and cut and the infant was handed off to awaiting nurse. The placenta was delivered spontaneously immediately following and was noted to be intact and have a three-vessel cord. The uterus was exteriorized cleared of all clots and debris, and the incision was closed in a double layer closure using #1 Vicryl and #1Monocryl. The ovaries and fallopian tubes were noted to be within normal limits. The uterus was returned to the maternal abdomen and gutters were cleared of all clots and debris. The peritoneum was closed with 3-0 Monocryl in a running fashion. Fascia was closed with 0 PDS in a running fashion. Subcutaneous tissue was copiously irrigated and the skin was closed with 3-0 Monocryl in a subcuticular fashion. Mepilex dressing was applied without complication. Patient was taken to recovery in stable condition. It was discussed with the patient that based on the clinical information obtained during this encounter, combined with her history, at this time I would recommend either or repeat cesaren section for future deliveries if further pregnancies are desired. Presentation: Positive for Vertex Amniotic Membrane Rupture Type: Artificial Amniotic Fluid Description: Clear Placental Delivery Description: Expressed Placenta Disposition: [facility] Cord Vessel Description: 3 Vessels Cord Entanglement: None Infant A Gender: Male (1 minute): 6 (5 minute): 7 Delayed Cord Clamping: Yes Complications Risks of Surgery Discussed w/Patient: Bleeding, Anesthesia Risks, Infection, Need for Future C-Sections and Injury to surrounding structure(s) including bowel and bladder Multi Select Codes Urinary/Genital Urinary/Genital CPT Codes: 45963 Delivery [facility]
[2024-04-11] MEDS: Oxytocin 15 Units/NS 250ml 15 UNITS/250 ML IV.SOLN 83 UNITS IV (13:30)
[2024-04-11] MEDS: Ketorolac 30 MG/ML Syringe IV ×2 (14:00→19:54)
[2024-04-11] MEDS: Lactated Ringers 1,000 ML 100 ML IV (16:56)
[2024-04-12] MEDS: 0.9% Saline Lock 10 ML Syringe IV ×2 (01:21→07:57)
[2024-04-12] MEDS: Ketorolac 30 MG/ML Syringe IV ×2 (01:21→07:57)
[2024-04-12 04:40] VITALS: BP 112/67; PULSE 86; RESP 16; TEMP 36.6; O2SAT 98
[2024-04-12] MEDS: Acetaminophen 500 MG Tablet 1000 MG PO ×3 (05:23→18:03)
[2024-04-12 06:06] LABS: Hematocrit 27.5 % (37-47); Mean Corp Hgb Conc 32.7 g/dL (32-36); Mean Corpuscular Hgb 27.7 pg (27.0-32.0); Mean Corpuscular Volume 84.6 fL (81-99); Mean Platelet Vol. 9.8 fl (6.2-12.0); Platelet Count 225 K/mm3 (150-450); RBC Distribution Width SD 37.1 fl (35.1-43.9); Red Blood Count 3.25 M/mm3 (4.2-5.4); White Blood Count 13.6 K/mm3 (4.4-11.0)
[2024-04-12 08:05] VITALS: BP 118/86; PULSE 93; RESP 16; TEMP 36.8; O2SAT 100
--- NOTE | 2024-04-12 10:41 | PCM.PN.OB ---
Subjective Subjective Patient doing well without complaints. Tolerating PO. Ambulating and voiding without difficulty. Feeding well. Denies chest pain, shortness of breath, calf pain/swelling, fevers, chills, lightheadedness. pain managed with PO medications. Objective Data Objective Data Vital Signs: Vital Signs Temp Pulse Resp BP Pulse Ox O2 Del Method 98.3 F 93 16 118/86 H 100 Room Air 04/12/24 08:05 04/12/24 08:05 04/12/24 08:05 04/12/24 08:05 04/12/24 08:05 04/12/24 08:05 Oxygen Delivery Method Room Air Weight: 170 lb 6.4 oz Body Mass Index (BMI) 31.1 Intake & Output: Intake and Output for Last 24 Hours 04/10/24 04/11/24 04/12/24 23:59 23:59 23:59 Intake Total 1507.5 / 1507.5 813.33 / 813.33 Output Total 2550 / 2550 900 / 900 Balance -1042.5 / -1042.5 -86.67 / -86.67 Lab / Micro Data 04/12/24 05:55 Labs: Laboratory Results - last 24 hr 04/11/24 10:40: WBC 12.1 H, RBC 4.63, Hgb 12.8, Hct 39.0, MCV 84.2, MCH 27.6, MCHC 32.8, RDW Std Deviation 36.5, RDW Coeff of Hernandez 12.1, Plt Count 309, MPV 10.4, Immature Gran % (Auto) 0.700, Neut % (Auto) 72.2 H, Lymph % (Auto) 17.6 L, [place] % (Auto) 6.9, Eos % (Auto) 2.3, Baso % (Auto) 0.3, Absolute Neuts (auto) 8.7 H, Absolute Lymphs (auto) 2.13, Nucleated RBC % 0, Syphilis Total Ab Non-reactive, Blood Type A POSITIVE, Antibody Screen NEGATIVE 04/12/24 05:55: WBC 13.6 H, RBC 3.25 L, Hgb 9.0 L, Hct 27.5 L, MCV 84.6, MCH 27.7, MCHC 32.7, RDW Std Deviation 37.1, RDW Coeff of Hernandez 12.0, Plt Count 225, MPV 9.8 Physical Exam Const alert and oriented x3 Neck full ROM Lymph Lymphatic: no lymphadenopathy noted Chest inspection of chest normal Resp normal respiratory effort, normal air movement and no retractions Effort and Inspection: able to speak in complete sentences Auscultation: clear to auscultation bilaterally Cardio regular rate and regular rhythm GI normal to inspection, nondistended, normoactive bowel sounds Uterus Palpation: uterus fundus firm Extremity normal to inspection, full ROM and no calf tenderness Skin Skin Narrative: dressing intact, with old marked drainage, no further drainage. Neuro oriented x3 Psych mental status grossly normal Assessment & Plan (1) delivery delivered: COMMENT: KADE suspected LGA cs. boy:Matthew PLAN: Plan s/p LTCS PPD # 1 1. routine post care 2. breast feeding- support given 3. rh positive 4. rubella immune 5. plan d/c home tomorrow.
[2024-04-12] MEDS: Senna/Docusate Sodium 1 Tablet PO (11:38)
[2024-04-12 13:08] VITALS: BP 105/68; PULSE 80; RESP 16; TEMP 36.2; O2SAT 98
[2024-04-12] MEDS: Naproxen 500 MG Tablet PO ×2 (14:00→20:26)
[2024-04-12 17:41] VITALS: BP 115/67; PULSE 83; RESP 16; TEMP 36.7; O2SAT 100
[2024-04-12 20:27] VITALS: BP 108/70; PULSE 69; RESP 16; TEMP 36.4; O2SAT 99
[2024-04-13] MEDS: Acetaminophen 500 MG Tablet 1000 MG PO ×2 (00:37→05:32)
[2024-04-13 02:13] VITALS: BP 124/64; PULSE 80; RESP 14; TEMP 36.6
[2024-04-13] MEDS: Naproxen 500 MG Tablet PO ×2 (02:13→08:49)
[2024-04-13 08:55] VITALS: BP 119/69; PULSE 100; RESP 16; TEMP 36.7; O2SAT 99
--- NOTE | 2024-04-13 08:56 | PCM.PN.OB ---
Subjective Subjective Patient doing well without complaints. Tolerating PO. Ambulating and voiding without difficulty. Feeding well. Denies chest pain, shortness of breath, calf pain/swelling, fevers, chills, lightheadedness. Objective Data Objective Data Vital Signs: Vital Signs Temp Pulse Resp BP Pulse Ox O2 Del Method 98.1 F 100 16 119/69 99 Room Air 04/13/24 08:55 04/13/24 08:55 04/13/24 08:55 04/13/24 08:55 04/13/24 08:55 04/13/24 08:55 Oxygen Delivery Method Room Air Weight: 170 lb 6.4 oz Body Mass Index (BMI) 31.1 Intake & Output: Intake and Output for Last 24 Hours 04/11/24 04/12/24 04/13/24 23:59 23:59 23:59 Intake Total 1507.5 / 1507.5 813.33 / 813.33 Output Total 2550 / 2550 900 / 900 Balance -1042.5 / -1042.5 -86.67 / -86.67 Lab / Micro Data 04/12/24 05:55 Physical Exam Const alert and oriented x3 Neck full ROM Lymph Lymphatic: no lymphadenopathy noted Chest inspection of chest normal Resp normal respiratory effort, normal air movement and no retractions Effort and Inspection: able to speak in complete sentences Auscultation: clear to auscultation bilaterally Cardio regular rate and regular rhythm GI normal to inspection, nondistended, normoactive bowel sounds Uterus Palpation: uterus fundus firm Extremity normal to inspection, full ROM and no calf tenderness Skin Skin Narrative: dressing intact, with old marked drainage, no further drainage. Neuro oriented x3 Psych mental status grossly normal Assessment & Plan (1) delivery delivered: COMMENT: KADE suspected LGA cs. boy:Matthew PLAN: s/p LTCS PPD # 1 1. routine post care 2. breast feeding- support given 3. rh positive 4. rubella immune 5. dc home
--- NOTE | 2024-04-13 09:05 | DS.PCM_ITS ---
Providers Date of Admission: 04/11/24 Primary Care Physician: Dr. Jocelynn Pineda DO Reason For Visit: PRIMARY CSECTION Diagnosis Discharge Diagnosis (1) delivery delivered: Status: Acute Code(s): O82 - Encounter for delivery without indication Plan: s/p LTCS PPD # 1 1. routine post care 2. breast feeding- support given 3. rh positive 4. rubella immune 5. dc home Medications at Discharge Home Medications vit,calcium no.40-iron fum 27 mg iron-folate no.1 1 mg tablet (PNV- Select) tab PO pegnancy 09/14/23 metoclopramide HCl 5 mg tablet (Reglan) 5 mg PO Q6H PRN nausea and vomiting #30 tabs 11/07/23 ondansetron HCl 4 mg tablet 4 mg PO Q6H nausea #30 tabs 01/04/24 naproxen 500 mg tablet 500 mg PO BID PRN pain #30 tabs 04/11/24 Hospital Course Operations section Procedures None Summary of Care Provided Hospital Course: delivered via cs for LGA Physical Exam Const alert and oriented x3 Neck full ROM Lymph Lymphatic: no lymphadenopathy noted Chest inspection of chest normal Resp normal respiratory effort, normal air movement and no retractions Effort and Inspection: able to speak in complete sentences Auscultation: clear to auscultation bilaterally Cardio regular rate and regular rhythm GI normal to inspection, nondistended, normoactive bowel sounds Uterus Palpation: uterus fundus firm Extremity normal to inspection, full ROM and no calf tenderness Skin Skin Narrative: dressing intact, with old marked drainage, no further drainage. Neuro oriented x3 Psych mental status grossly normal Weight / BMI Weight Weight: 170 lb 6.4 oz Body Mass Index (BMI) 31.1 ABG / Lab / Microbiology Data 04/12/24 05:55 D/C Instructions Discharge Diet: No restrictions May resume sexual activity in: 4-6 weeks Weight Bearing Status: Full weight bearing Call your doctor if your incision/area has: Continuous Slow Oozing, Sudden Increased Bleeding, Increased Pain/ Swelling, Increased Redness and Foul Smelling Discharge Call your doctor if you observe: Fever of 101 or Higher and Using more than 1 pad per hour Suture Line Care: Avoid Pulling/Pushing and Avoid Pinching/Bending Cleanse incision/area with: Soap & Water and Keep Dressing Clean & Dry Please Follow Up With: Norma Nelson DO When: Call [phone] to make an appointment for an incision check in 1-2 weeks. Meaningful Use Info Meaningful Use Meaningful Use Diagnoses (Choose all that apply): None applicable Ischemic Stroke Statin Dosing Therapy Reference: STATIN DOSE THERAPY REFERENCE: * Patients > 75 years receive moderate or high dose statin therapy. * Patients 75 years or YOUNGER should receive HIGH intensity statin dose unless contraindicated. You will be required to document reason for non-treatment if statin daily dose does not meet guidelines. HIGH DOSE STATIN THERAPY DAILY Atorvastatin > than or = to 40 mg Rosuvastatin > than or = to 20 mg Amlodipine + Atorvastatin > than or = to 2.5/40 mg Ezetimibe + Simvastatin 10/80 mg Simvastatin 80mg Discharge Plan Admission Admit Date/Time: 04/11/24 10:16 Primary Reason for Your Visit: section Attending Provider: Norma Nelson Primary Care Provider: Jocelynn Pineda Discharge Orders/Prescriptions Prescriptions: New naproxen 500 mg tablet 500 mg PO BID PRN (Reason: pain) Qty: 30 0RF Continued PNV-Select 27-1 mg tablet PO metoclopramide HCl [Reglan] 5 mg tablet 5 mg PO Q6H PRN (Reason: nausea and vomiting) Qty: 30 4RF ondansetron HCl 4 mg tablet 4 mg PO Q6H Qty: 30 4RF Referrals / Follow Up: Jocelynn Pineda DO [Primary Care Provider] - Disposition Disposition (needs filled in before D/C Order can be placed): Home, Self Care
[2024-04-13] MEDS: oxyCODONE 5 MG Tablet PO (09:09)
[2024-04-13] MEDS: Senna/Docusate Sodium 1 Tablet PO (10:11)
== END 2024-04-13 12:00 | disposition home or self-care (01) | DRG 788 ==
PROVIDERS: Admitting Provider Obstetrics & Gynecology; PCP Internal Medicine; Referring Provider Obstetrics & Gynecology; Visit Provider Obstetrics & Gynecology
PROC: 10D00Z1 Extraction of Products of Conception, Low, Open Approach (ICD-10-PCS; CPT 59514; principal; 2024-04-11 11:45)
DX: O36.63X0 Maternal care for excessive fetal growth, third trimester, not applicable or unspecified (principal); O43.113 Circumvallate placenta, third trimester; Z37.0 Single live birth; Z3A.39 39 weeks gestation of pregnancy
CPT/HCPCS: 59025; 59050; 85025; 85027; 86780; 86850; 86900; 86901; 99221; J7120; A4216; G0378; J2405

== ENCOUNTER → 2024-05-22 | Outpatient (CLI) | payer OTHER, SELFPAY ==
[2024-05-27 22:33] LABS: HPV Reflexed? NOT INDICATED
== END | disposition home or self-care (01) ==
LOC: LABSPEC 16:14
PROVIDERS: PCP Internal Medicine; Referring Provider Obstetrics & Gynecology; Visit Provider Obstetrics & Gynecology
DX: Z12.4 Encounter for screening for malignant neoplasm of cervix (principal)
CPT/HCPCS: 88175; G0145